=== PATIENT | male | born 1965 | race Caucasian/White ===

== ENCOUNTER 2022-01-12 15:01 | Observation (INO) | payer BC, OTHER ==
[2022-01-12] MEDS ORDERED: Dextrose 50% Abboject 50 ML SYRINGE SLOW IVP PRN (17:11)
[2022-01-12] MEDS ORDERED: hydrALAZINE 20 MG/ML VIAL SLOW IVP PRN (17:11)
[2022-01-12] MEDS ORDERED: Ondansetron ODT 4 MG TAB PO PRN (17:11)
[2022-01-12] MEDS ORDERED: Dextrose 5% in Water 1,000 ML IV PRN (17:11)
[2022-01-12] MEDS ORDERED: Ondansetron PF 4 MG/2 ML Vial IVP PRN (17:11)
[2022-01-12 17:40] VITALS: BMI 28.5
[2022-01-12] MEDS: Acetaminophen 500 MG TAB PO PRN (18:15)
[2022-01-12] MEDS: Ibuprofen 800 MG TAB PO PRN (19:48)
[2022-01-13] MEDS: Ibuprofen 800 MG TAB PO PRN (04:18)
[2022-01-13 05:16] VITALS: TEMP 97.9
[2022-01-13] MEDS: Acetaminophen 500 MG TAB PO PRN ×2 (08:57→14:17)
[2022-01-13 12:40] VITALS: BP 145/96
== END 2022-01-13 14:25 | disposition home or self-care (01) ==
LOC: SURG A 16:56
PROVIDERS: ADMIT Surgery; ATTEND Surgery
DX: S06.0X9A Concussion with loss of consciousness of unspecified duration, initial encounter (principal); S01.01XA Laceration without foreign body of scalp, initial encounter; I25.10 Atherosclerotic heart disease of native coronary artery without angina pectoris; I10 Essential (primary) hypertension; Z79.82 Long term (current) use of aspirin; Z79.899 Other long term (current) drug therapy; Z95.1 Presence of aortocoronary bypass graft; W22.09XA Striking against other stationary object, initial encounter
CPT/HCPCS: G0378; Q0162